=== PATIENT | male | born 1945 | race Caucasian/White ===

== ENCOUNTER 2018-07-10 06:41 | Day surgery (SDC) | payer MEDICARE ==
[~2018-07-10] VITALS: Ht 175.3 cm; Wt 94.2 kg
[2018-07-10] VITALS (7 sets, daily range): BP systolic 141–153; BP diastolic 83–91
[~2018-07-10 06:41] MED LIST: LIDOcaine 1% 30ml preserv. free vial SQ STA
[2018-07-10] MEDS ORDERED: DHEA (08:23)
[2018-07-10] MEDS ORDERED: GINSENG (08:23)
[2018-07-10] MEDS ORDERED: ASPI-10 PO (08:23)
[2018-07-10] MEDS ORDERED: ATOR40TA PO (08:23)
== END 2018-07-10 10:10 | disposition home or self-care (01) ==
LOC: SSTAY O 06:41
PROVIDERS: ATTEND Radiology Diagnostic Radiology
DX: K11.8 Other diseases of salivary glands (principal); R59.1 Generalized enlarged lymph nodes
CPT/HCPCS: 20206; 76942; J3490

== ENCOUNTER 2019-08-17 09:03 | Day surgery (SDC) | payer MEDICARE ==
[~2019-08-17] VITALS: Ht 177.8 cm; Wt 96.2 kg
[2019-08-17] VITALS (10 sets, daily range): BP systolic 118–165; BP diastolic 70–103
[~2019-08-17 09:03] MED LIST changes: +ASPI-10 PO; +ATOR40TA PO; +DHEA; +GINSENG; -LIDOcaine 1% 30ml preserv. free vial SQ STA
[2019-08-17] MEDS ORDERED: diphenhydrAMINE 25mg capsule PO PRN (09:30)
[2019-08-17] MEDS ORDERED: normal saline 1,000 ML IV SCH (09:30)
[2019-08-17] MEDS ORDERED: FLUT16SP2 BOTHNARES (10:01)
[2019-08-17] MEDS ORDERED: ROSU40TA PO (10:01)
[2019-08-17] MEDS ORDERED: SILD50TA PO (10:01)
[2019-08-17] MEDS ORDERED: CHOL4PAC (10:01)
[2019-08-17 10:15] LABS: ALBUMIN 3.5 G/DL (3.4-5.0); ANION GAP 7 (8-16); CHLORIDE 102 MMOL/L (99-107); CREATININE 1.34 MG/DL (0.60-1.10); MAGNESIUM 2.1 MG/DL (1.5-2.4); POTASSIUM 3.9 MMOL/L (3.5-5.1); SODIUM 133 MMOL/L (135-145); TOTAL CARBON DIOXIDE 23.6 MMOL/L (24-32); eGFR 52 ML/MIN
[2019-08-17 10:16] LABS: BASOPHILS # (AUTO) 0.1 X10'3 (0-0.2); BASOPHILS % (AUTO) 1.2 % (0-1); EOSINOPHILS # (AUTO) 0.1 X10'3 (0-0.9); HEMATOCRIT 41.6 % (42.0-52.0); LYMPHOCYTES # (AUTO) 1.1 X10'3 (1.1-4.8); LYMPHOCYTES % (AUTO) 23.2 % (21-51); MEAN CORPUSCULAR HGB CONC 33.8 g/dL (33.0-36.5); MEAN CORPUSCULAR VOLUME 97.8 FL (78-98); MEAN PLATELET VOLUME 8.2 FL (7.4-10.4); MONOCYTES # (AUTO) 0.6 X10'3 (0-0.9); MONOCYTES % (AUTO) 13.1 % (2-12); NEUTROPHILS % (AUTO) 61.5 % (42-75); PLATELET COUNT 194 X10'3 (140-440); RED BLOOD COUNT 4.25 X10'6 (4.70-6.10); RED CELL DISTRIBUTION WIDTH 13.8 % (11.5-14.5); WHITE BLOOD COUNT 4.9 X10'3 (4.5-11.0)
[2019-08-17 10:18] LABS: BLOOD UREA NITROGEN 12 MG/DL (7-18); CALCIUM 8.6 MG/DL (8.5-10.1); GLUCOSE 98 MG/DL (70-104)
[2019-08-17] MEDS ORDERED: midazolam 2 mg/2 ml injection ONE ×2 (10:44→11:16)
[2019-08-17] MEDS ORDERED: iohexol 350 MG/ML 50ML vial IV ONE ×2 (10:44→12:19)
[2019-08-17] MEDS ORDERED: LIDOcaine 1% (10mg/ml)w/preservative injection 20ml MDV ONE (10:44)
[2019-08-17] MEDS ORDERED: fentaNYL/PF 50MCG/1 ML 2ML syringe ONE ×2 (10:44→11:16)
[2019-08-17] MEDS ORDERED: iohexol 350MG/ML 100ml bottle IV ONE (10:44)
[2019-08-17] MEDS ORDERED: heparin 1,000unit/ml 10ml vial 10 ML ONE (10:44)
[2019-08-17] MEDS ORDERED: glycopyrrolate 0.2mg/ml inj IV ONE (10:45)
== END 2019-08-17 16:00 | disposition home or self-care (01) ==
LOC: SSTAY O 09:03 → MED 3N 09:08 → SSTAY O 16:00
PROVIDERS: ATTEND Internal Medicine Cardiovascular Disease
DX: R94.39 Abnormal result of other cardiovascular function study (principal); I25.10 Atherosclerotic heart disease of native coronary artery without angina pectoris; I25.82 Chronic total occlusion of coronary artery; I08.0 Rheumatic disorders of both mitral and aortic valves; I25.2 Old myocardial infarction; Z79.899 Other long term (current) drug therapy; Z95.1 Presence of aortocoronary bypass graft; E78.00 Pure hypercholesterolemia, unspecified; Z98.890 Other specified postprocedural states; Z79.82 Long term (current) use of aspirin
CPT/HCPCS: 36415; 80048; 83735; 85025; 85610; 93005; 93312; 93325; 93461; 99152; 99153; C1769; C1894; J1644; J2001; J2250; J3010; J7030; Q0163; Q9967; A4620; A6258; C1760; J3490

== ENCOUNTER 2024-06-16 08:21 | Day surgery (SDC) | payer MEDICARE ==
[2024-06-09 16:14] LABS: BASOPHILS % (AUTO) 0.6 % (0-1); EOSINOPHILS % (AUTO) 0.5 % (0-6); LYMPHOCYTES # (AUTO) 1.1 X10'3 (1.1-4.8); MEAN CORPUSCULAR HGB CONC 33.7 g/dL (33.0-36.5); MEAN PLATELET VOLUME 7.5 FL (7.4-10.4); MONOCYTES # (AUTO) 0.7 X10'3 (0-0.9); MONOCYTES % (AUTO) 8.7 % (2-12); NEUTROPHILS # (AUTO) 6.1 X10'3 (1.8-7.7); NEUTROPHILS % (AUTO) 76.2 % (42-75); PRE OP HEMATOCRIT 39.2 % (42.0-52.0); PRE OP HEMOGLOBIN 13.2 g/dL (14.0-17.9); PRE OP PLATELET COUNT 179 X10'3 (140-440); RED BLOOD COUNT 3.88 X10'6 (4.70-6.10); RED CELL DISTRIBUTION WIDTH 13.1 % (11.5-14.5)
[2024-06-09 16:39] LABS: ALBUMIN 2.8 G/DL (3.4-5.0); ALBUMIN/GLOBULIN RATIO 0.4 (1.1-1.5); ALKALINE PHOSPHATASE 135 IU/L (46-116); BLOOD UREA NITROGEN 9 MG/DL (7-18); BUN/CREATININE RATIO 6.9 (10.0-20.0); CALCIUM 8.9 MG/DL (8.5-10.1); CHLORIDE 103 MMOL/L (99-107); PRE OP ALT 76 U/L (30-65); PRE OP ANION GAP 5 (8-16); PRE OP AST 100 U/L (10-37); PRE OP BILIRUB, TOTAL 0.4 MG/DL (0.0-1.0); PRE OP POTASSIUM 3.8 MMOL/L (3.4-5.1); PRE OP SODIUM 134 MMOL/L (135-145); TOTAL CARBON DIOXIDE 26.2 MMOL/L (24-32); TOTAL PROTEIN 9.2 G/DL (6.4-8.2); eGFR 54 ML/MIN
[2024-06-09 16:42] LABS: PRE OP GLUCOSE 110 MG/DL (70-104)
[2024-06-16] VITALS (18 sets, daily range): BP systolic 113–146; BP diastolic 65–98; PULSE 75–95; RESP 11–19; TEMP 97.3; O2SAT 96–100
[~2024-06-16] VITALS: Ht 175.3 cm; Wt 83.6 kg
[2024-06-16] MEDS: DOCUMENT DATE & TIME OF BETA-BLOCKER PO ONE (06:45)
[~2024-06-16 08:21] MED LIST changes: -ASPI-10 PO; -ATOR40TA PO; +CALC-336 PO; -DHEA; +DOXY25TA58 PO; +EVOL140S2 SUBCUT; +EZET10TA6 PO; +FLUT16SP2 BOTHNARES; +GINS100C5; -GINSENG; +METO-395 PO; +MIRT-142 PO; +MULT-1217; +OMEP10CA5 PO; +ROSU40TA PO; +SILD50TA PO; +UBID10CA4 PO
[2024-06-16] MEDS: tamsulosin 0.4mg capsule PO ONE (09:50)
[2024-06-16] MEDS: famotidine 20mg tablet PO ONE (09:50)
[2024-06-16] MEDS: ringers solution, lacted 1,000 ML IV SCH (09:51)
[2024-06-16] MEDS: ceFAZolin 2gm in dextrose, iso 50 ML IV ONE (09:51)
[2024-06-16] MEDS ORDERED: BUPIVAcaine 2.5mg/ml inj 50ml vial (contains preservative) ONE (10:44)
[2024-06-16] MEDS ORDERED: LIDOcaine 1% 30ml preserv. free vial ONE (10:44)
[2024-06-16] MEDS ORDERED: ringers solution, lacted 1,000 ML IV SCH (11:00)
[2024-06-16] MEDS ORDERED: sevoflurane 250ml liquid IH ONE (11:00)
[2024-06-16] MEDS ORDERED: fentaNYL/PF 50MCG/1 ML 2ML syringe IV PRN ×2 (11:00)
[2024-06-16] MEDS ORDERED: morphine 2 MG/ML inj. syringe IV PRN (11:00)
[2024-06-16] MEDS ORDERED: morphine 4 MG/ML inj SYRINge IV PRN (11:00)
[2024-06-16] MEDS ORDERED: labetalol 20mg/4ml (5mg/ml) syringe IV PRN (11:00)
[2024-06-16] MEDS ORDERED: ondansetron/PF 4mg/2ml inj IV PRN (11:00)
[2024-06-16] MEDS ORDERED: hydrALAZINE 20mg/ml inj. IV PRN (11:00)
[2024-06-16] MEDS ORDERED: midazolam 1 mg/ML 2ml injection ONE (11:03)
[2024-06-16] MEDS ORDERED: fentaNYL/PF 50MCG/1 ML 2ML syringe ONE (11:03)
[2024-06-16] MEDS ORDERED: dexamethasone sod phosphate 4mg/ml inj. ONE (11:15)
[2024-06-16] MEDS ORDERED: ondansetron/PF 4mg/2ml inj ONE (11:15)
[2024-06-16] MEDS ORDERED: LIDOcaine 2% (20mg/ml) 5ml vial ONE (11:15)
[2024-06-16] MEDS ORDERED: propofol inj 20 ML IV ONE (11:15)
[2024-06-16] MEDS ORDERED: rocuronium 10mg/ml inj IV ONE (11:15)
[2024-06-16] MEDS ORDERED: glycopyrrolate 0.2mg/ml inj ONE (11:16)
[2024-06-16] MEDS ORDERED: acetaminophen 1,000mg/100ml IV 100 ML IV ONE (11:19)
[2024-06-16] MEDS: BUPIVAcaine/PF 2.5 mg/ml (0.25%) 30ml vial IJ ONE (12:17)
[2024-06-16] MEDS ORDERED: HYDROcodone/acetaminophen 5mg/325mg tablet PO PRN (12:50)
== END 2024-06-16 16:44 | disposition home or self-care (01) ==
LOC: PAS 08:21
PROVIDERS: ATTEND Surgery
DX: K40.90 Unilateral inguinal hernia, without obstruction or gangrene, not specified as recurrent (principal); I10 Essential (primary) hypertension; I25.10 Atherosclerotic heart disease of native coronary artery without angina pectoris; E78.5 Hyperlipidemia, unspecified; K21.9 Gastro-esophageal reflux disease without esophagitis; I25.2 Old myocardial infarction; Z95.818 Presence of other cardiac implants and grafts; Z95.5 Presence of coronary angioplasty implant and graft; Z98.890 Other specified postprocedural states; Z79.899 Other long term (current) drug therapy; Z82.3 Family history of stroke
CPT/HCPCS: 36415; 49650; 80053; 82948; 85025; A4215; A4314; A4618; C1781; J0131; J0690; J1100; J2003; J2250; J2405; J2704; J2710; J3010; J3490; J7030; J7120; Z7506; Z7508; Z7512; Z7610

== ENCOUNTER 2024-09-01 10:12 | Day surgery (SDC) | payer MEDICARE ==
[2024-08-28 14:27] LABS: BASOPHILS # (AUTO) 0.1 X10'3 (0-0.2); BASOPHILS % (AUTO) 0.8 % (0-1); EOSINOPHILS % (AUTO) 0.3 % (0-6); LYMPHOCYTES % (AUTO) 15.4 % (21-51); MEAN CORPUSCULAR HEMOGLOBIN 34.6 PG (27.0-31.0); MEAN CORPUSCULAR HGB CONC 34.2 g/dL (33.0-36.5); MEAN CORPUSCULAR VOLUME 101.2 FL (78-98); MEAN PLATELET VOLUME 7.8 FL (7.4-10.4); MONOCYTES # (AUTO) 0.6 X10'3 (0-0.9); MONOCYTES % (AUTO) 8.4 % (2-12); NEUTROPHILS # (AUTO) 5.1 X10'3 (1.8-7.7); NEUTROPHILS % (AUTO) 75.1 % (42-75); PRE OP HEMATOCRIT 38.7 % (42.0-52.0); PRE OP HEMOGLOBIN 13.2 g/dL (14.0-17.9); PRE OP PLATELET COUNT 176 X10'3 (140-440); PRE OP WHITE BLOOD COUNT 6.8 10'3 (4.8-10.8); RED BLOOD COUNT 3.82 X10'6 (4.70-6.10); RED CELL DISTRIBUTION WIDTH 14.1 % (11.5-14.5)
[2024-08-28 14:46] LABS: ALKALINE PHOSPHATASE 162 IU/L (46-116); BLOOD UREA NITROGEN 13 MG/DL (7-18); BUN/CREATININE RATIO 10.7 (10.0-20.0); CHLORIDE 106 MMOL/L (99-107); CREATININE 1.21 MG/DL (0.60-1.10); PRE OP ANION GAP 8 (8-16); PRE OP POTASSIUM 3.9 MMOL/L (3.4-5.1); PRE OP SODIUM 139 MMOL/L (135-145); TOTAL CARBON DIOXIDE 25.5 MMOL/L (24-32); eGFR 58 ML/MIN
[2024-08-28 14:49] LABS: ALBUMIN/GLOBULIN RATIO 0.5 (1.1-1.5); CALCIUM 9.1 MG/DL (8.5-10.1); PRE OP BILIRUB, TOTAL 0.5 MG/DL (0.0-1.0); PRE OP GLUCOSE 93 MG/DL (70-104)
[2024-08-28 14:51] LABS: PRE OP AST 252 U/L (10-37)
[2024-08-28 14:52] LABS: PRE OP ALT 167 U/L (30-65)
[~2024-09-01] VITALS: Ht 175.3 cm; Wt 80.7 kg
[2024-09-01] VITALS (13 sets, daily range): BP systolic 120–136; BP diastolic 75–105; PULSE 63–109; RESP 14–21; TEMP 98.2; O2SAT 95–99
[2024-09-01] MEDS: DOCUMENT DATE & TIME OF BETA-BLOCKER PO ONE (05:30)
[2024-09-01] MEDS: ceFAZolin 2gm in dextrose, iso 50 ML IV ONE (08:34)
[~2024-09-01 10:12] MED LIST changes: +BUPIVAcaine 2.5mg/ml inj 50ml vial (contains preservative) ONE; +LIDOcaine 1% 30ml preserv. free vial ONE; -MIRT-142 PO; +ringers solution, lacted 1,000 ML IV SCH
[2024-09-01] MEDS: famotidine 20mg tablet PO ONE (10:29)
[2024-09-01] MEDS: tamsulosin 0.4mg capsule PO ONE (10:29)
[2024-09-01] MEDS ORDERED: metoprolol tartrate 25mg tablet PO ONE (10:45)
[2024-09-01] MEDS: metoprolol tartrate 50mg tablet PO ONE (11:12)
[2024-09-01] MEDS: metoprolol tartrate 25mg tablet ONE (11:13)
[2024-09-01] MEDS: metoprolol tartrate 25mg tablet PO ONE (11:14)
[2024-09-01] MEDS ORDERED: fentaNYL/PF 50MCG/1 ML 2ML syringe ONE ×2 (11:35→13:23)
[2024-09-01] MEDS ORDERED: propofol inj 20 ML IV ONE (11:35)
[2024-09-01] MEDS ORDERED: midazolam 1 mg/ML 2ml injection ONE (11:35)
[2024-09-01] MEDS ORDERED: sevoflurane 250ml liquid IH ONE (11:56)
[2024-09-01] MEDS ORDERED: ondansetron/PF 4mg/2ml inj IV PRN (12:00)
[2024-09-01] MEDS ORDERED: morphine 4 MG/ML inj SYRINge IV PRN (12:00)
[2024-09-01] MEDS ORDERED: ringers solution, lacted 1,000 ML IV SCH (12:00)
[2024-09-01] MEDS ORDERED: morphine 2 MG/ML inj. syringe IV PRN (12:00)
[2024-09-01] MEDS ORDERED: meperidine/PF 25mg/ml syringe IV PRN ×3 (12:00)
[2024-09-01] MEDS ORDERED: labetalol 20mg/4ml (5mg/ml) syringe IV PRN (12:00)
[2024-09-01] MEDS ORDERED: proCHLORperazine 10 MG/2 ml inj IV PRN (12:00)
[2024-09-01] MEDS ORDERED: rocuronium 10mg/ml inj IV ONE (12:09)
[2024-09-01] MEDS: BUPIVAcaine/PF 2.5 mg/ml (0.25%) 30ml vial IJ ONE (12:15)
[2024-09-01] MEDS ORDERED: ondansetron/PF 4mg/2ml inj ONE (14:01)
[2024-09-01] MEDS ORDERED: glycopyrrolate 0.2mg/ml inj ONE (14:03)
[2024-09-01] MEDS ORDERED: neostigmine methylsulfate 1 MG/ML 10ml vial ONE (14:03)
[2024-09-01] MEDS ORDERED: HYDROcodone/acetaminophen 5mg/325mg tablet PO PRN (14:40)
--- NOTE | 2024-09-01 14:47 | OPERATIVE REPORT ---
Operative Report Providers to CC CC: LEVAR HASSAN MD ~ Date of Procedure: Sep 01, 2024 Pre-Operative Diagnosis: Recurrent left inguinal hernia Post-Operative Diagnosis SAME as PRE-Op Procedure Performed Robotic assisted, laparoscopic mesh repair of recurrent left inguinal hernia Surgeon: Levar Hassan MD FACS [employer] None Anesthesiologist: Alexandro Duncan Type of Anesthesia: General Findings: Very large indirect recurrent hernia Wound Class I Complications None Prosthetics\Implants used: Extra-large left Dextile mesh Estimated Blood Loss: 10 cc Specimen Removed: None Description of Procedure: Patient was brought to the operating room and identified by the nursing staff and the attending physician. Patient was placed supine and general anesthesia was induced. Patient's abdomen was prepped and draped in standard sterile fashion. Preoperative antibiotics were given. Supraumbilical incision was made to allow for standard Osorio entry technique. Laparoscope was inserted after insufflation. Bilateral, 8.5 mm robotic trochars were placed under laparoscopic guidance following administration of local anesthetic. A 3rd 8.5 mm robotic port was placed in the far left lateral position for additional retraction. The da Daniel robotic arm was docked to the patient and instruments placed intra-abdominally under laparoscopic visualization. The right hemipelvis was examined and showed no evidence of right inguinal hernia. An indirect inguinal hernia was identified on the left side. Hernia sac was very, very large in size. There was herniated sigmoid colon. I was able to reduce this with external compression. There was evidence of recent repair with visible absorbable suture along the previous peritoneal rent. A rent was created in the peritoneum from the median umbilical fold. Mesh material was encountered just below this. The peritoneal incision was carried laterally and just a few cm to the left, peritoneum was no longer adherent to underlying mesh. Laterally, the peritoneal flap was continued towards the inguinal canal and cord structures. Medially, the peritoneum was dissected away from the preperitoneal mesh placed at his previous repair. It appeared that the mesh had shifted towards the right, completely exposing the inguinal canal. Preperitoneal flap was created and carried down to the symphysis pubis. The retropubic space of Retzius was developed and the bladder swept medially. Dissection was carried out laterally until an indirect hernia sac was identified. This was exceptionally large in size and it appeared that the previously reduced indirect hernia sac had completely herniated back into the inguinal canal. Hernia sac was completely dissected out of the inguinal canal and reduced. Further retroperitoneal dissection was created to allow for placement of a new piece of hernia mesh. During the dissection, bleeding from the cord vessels was stopped using vessel sealer device. The critical view of the myopectineal orifice was achieved. Dissection was carried out laterally to allow space for mesh deployment. An extra-large Dextile mesh and suture was passed intra-abdominally. Mesh was laid in the preperitoneal space covering both indirect, direct, and potential femoral and obturator hernias. Mesh laid without wrinkles or folds. 3 tacking sutures using 0 Ethibond were used to fix the mesh at the symphysis pubis, rectus abdominis, and just anterior to the anterior superior iliac spine. The peritoneal rent was then closed with running, 2/0, absorbable locking suture. [place] were retrieved. Abdomen was deflated and secondary trochars removed. Fascia at the umbilical port site was closed with 0 Vicryl sutures. Skin incis ions were closed with 4-0 Monocryl sutures in a subcuticular fashion. Sterile dressings were applied. Patient was awakened and taken to the postanesthesia care unit in stable condition. Counts repoted as correct: Yes LEVAR HASSAN MD Sep 01, 2024 14:47
[2024-09-02] MEDS ORDERED: metoprolol succinate 25mg (24-HOUR) SR. Tablet PO SCH (08:00)
== END 2024-09-01 16:24 | disposition home or self-care (01) ==
LOC: PAS 10:12
PROVIDERS: ATTEND Surgery
DX: K40.91 Unilateral inguinal hernia, without obstruction or gangrene, recurrent (principal); I25.10 Atherosclerotic heart disease of native coronary artery without angina pectoris; E78.5 Hyperlipidemia, unspecified; I10 Essential (primary) hypertension; K21.9 Gastro-esophageal reflux disease without esophagitis; Z88.8 Allergy status to other drugs, medicaments and biological substances; Z79.899 Other long term (current) drug therapy; Z98.890 Other specified postprocedural states
CPT/HCPCS: 36415; 49651; 80053; 82948; 85025; A4215; A4618; C1758; C1781; J0690; J1100; J2003; J2250; J2405; J2704; J2710; J3010; J3490; J7030; J7120; Z7506; Z7508; Z7512; Z7610